=== PATIENT | male | born 1980 | race Hispanic/Latino ===

== ENCOUNTER 2017-09-02 14:50 | Emergency (ER) | payer SELFPAY ==
[2017-09-02 16:02] LABS: BASOPHILS % (AUTO) 0.2 % (0.0-5.0); EOSINOPHILS % (AUTO) 0.4 % (0.0-8.0); HEMATOCRIT 40.9 % (42-54); LYMPHOCYTES % (AUTO) 14.6 % (21.0-51.0); MEAN CORPUSCULAR HEMOGLOBIN 29.3 pg (27.0-33.0); MEAN CORPUSCULAR HGB CONC 35.7 g/dL (32.0-36.0); MEAN CORPUSCULAR VOLUME 82.1 fL (79-99); MONOCYTES % (AUTO) 4.7 % (3.0-13.0); NEUTROPHILS % (AUTO) 80.1 % (40.0-77.0); PLATELET COUNT (AUTO) 222 K/uL (130-400); RED BLOOD CELL COUNT(AUTO) 4.98 MIL/uL (4.50-6.20); RED CELL DISTRIBUTION WIDTH 12.7 % (11.0-15.5); WHITE BLOOD COUNT (AUTO) 8.8 K/uL (4.8-10.8)
[2017-09-02 16:22] LABS: ALBUMIN 4.1 g/dL (3.5-5.0); BILIRUBIN,TOTAL 0.3 mg/dL (0.2-1.0); TOTAL PROTEIN, SERUM 8.4 g/dL (6.0-8.3)
[2017-09-02] MEDS ORDERED: KETOROLAC TROMETHAMINE 30MG/ML ONE (16:41)
[2017-09-03] MEDS ORDERED: IOPAMIDOL-370 75 ML VIAL IV ONE (07:23)
== END 2017-09-02 18:19 | disposition home or self-care (01) ==
LOC: EDH 14:50
DX: K85.90 Acute pancreatitis without necrosis or infection, unspecified (principal); E11.9 Type 2 diabetes mellitus without complications; Z88.2 Allergy status to sulfonamides; Z87.891 Personal history of nicotine dependence
CPT/HCPCS: 36415; 76705; 85025; 80053; 82150; 83690; 96361; 96374; 99285; J1885; Q9967

== ENCOUNTER 2017-09-03 06:21 | Inpatient (IN) | payer SELFPAY ==
[~2017-09-03] VITALS: Ht 172.7 cm; Wt 86.6 kg
[2017-09-03] MEDS ORDERED: SODIUM CHLORIDE 0.9% 1000ML 1,000 ML IV ONE ×2 (06:38→12:11)
[2017-09-03] MEDS ORDERED: ONDANSETRON HCL 4 MG/2 ML VIAL ONE ×2 (06:38→08:16)
[2017-09-03] MEDS ORDERED: KETOROLAC TROMETHAMINE 30MG/ML ONE (06:38)
[2017-09-03 07:00] LABS: BASOPHILS % (AUTO) 0.1 % (0.0-5.0); CREATININE 1.1 mg/dL (0.5-1.5); EOSINOPHILS % (AUTO) 0.7 % (0.0-8.0); LYMPHOCYTES % (AUTO) 14.8 % (21.0-51.0); MEAN CORPUSCULAR HEMOGLOBIN 28.1 pg (27.0-33.0); MEAN CORPUSCULAR HGB CONC 34.3 g/dL (32.0-36.0); MEAN CORPUSCULAR VOLUME 81.8 fL (79-99); MONOCYTES % (AUTO) 5.7 % (3.0-13.0); NEUTROPHILS % (AUTO) 78.7 % (40.0-77.0); PLATELET COUNT (AUTO) 247 K/uL (130-400); POTASSIUM 3.5 mmol/L (3.5-5.1); RED BLOOD CELL COUNT(AUTO) 5.38 MIL/uL (4.50-6.20); WHITE BLOOD COUNT (AUTO) 16.1 K/uL (4.8-10.8)
[2017-09-03 07:06] LABS: ALBUMIN 4.1 g/dL (3.5-5.0); BILIRUBIN,TOTAL 1.4 mg/dL (0.2-1.0); TOTAL PROTEIN, SERUM 8.4 g/dL (6.0-8.3)
[2017-09-03 08:13] LABS: APPEARANCE,URINE Clear (CLEAR); BILIRUBIN,URINE Negative (NEGATIVE); COLOR,URINE Yellow (YELLOW); GLUCOSE, URINE (UA) TRACE mg/dL (NEGATIVE); KETONES,URINE 15 mg/dL (NEGATIVE); LEUKOCYTE ESTERASE ,URINE Negative (NEGATIVE); NITRATE,URINE Negative (NEGATIVE); OCCULT BLOOD,URINE Moderate (NEGATIVE); PH,URINE 5.5 (5.0-8.0); PROTEIN,URINE Negative (NEGATIVE)
[2017-09-03] MEDS ORDERED: MORPHINE SULFATE 8 MG/ML VIAL ONE (08:17)
[2017-09-03 08:20] LABS: AMPHET/METH SCREEN,URINE NEGATIVE (NEGATIVE); BARBITURATE SCREEN, URINE NEGATIVE (NEGATIVE); BENZODIAZEPINES SCREEN,URINE NEGATIVE (NEGATIVE); CANNABINOID SCREEN,URINE NEGATIVE (NEGATIVE); COCAINE SCREEN,URINE NEGATIVE (NEGATIVE); OPIATE SCREEN,URINE POSITIVE (NEGATIVE); PHENCYCLIDINE SCREEN,URINE NEGATIVE (NEGATIVE); RBC,URINE 0-1 /HPF (0-1)
[2017-09-03 08:21] LABS: BACTERIA,URINE Rare /HPF (None Seen); SQUAMOUS EPITHELIAL CELL,UR Rare /LPF (0-2); WBC,URINE 0-1 /HPF (0-1)
[2017-09-03] MEDS ORDERED: MORPHINE SULFATE 4 MG/1ML SYG ONE (10:10)
[2017-09-03 12:48] LABS: CHOLESTEROL 147 mg/dL (<200); HDL CHOLESTEROL 51 mg/dL (29-71); LDL DIRECT 92 mg/dL (0-99); TRIGLYCERIDES 110 mg/dL (30-200)
[2017-09-03 17:45] VITALS: BP 137/71
[2017-09-03 18:40] VITALS: BP 165/93
[2017-09-03 20:00] VITALS: BP 176/92
[2017-09-03] MEDS: SODIUM CHLORIDE 0.9% 1000ML 1,000 ML IV SCH (21:00)
[2017-09-03] MEDS ORDERED: MORPHINE SULFATE 2 MG/ML 1ML SYG ONE (21:01)
[2017-09-03] MEDS: MORPHINE SULFATE 2 MG/ML 1ML SYG IVP PRN (21:07)
[2017-09-03] MEDS: FAMOTIDINE/PF 20 MG/2 ML VIAL IV SCH (21:11)
[2017-09-03] MEDS ORDERED: ONDANSETRON HCL 4 MG/2 ML VIAL IVP PRN (21:15)
[2017-09-04] VITALS: BP 144/94
[2017-09-04] MEDS ORDERED: HYDRALAZINE HCL 20 MG/ML VIAL IV PRN (02:30)
[2017-09-04 04:00] VITALS: BP 138/85
[2017-09-04 05:37] LABS: HEMATOCRIT 40.4 % (42-54); MEAN CORPUSCULAR HEMOGLOBIN 28.7 pg (27.0-33.0); MEAN CORPUSCULAR HGB CONC 34.5 g/dL (32.0-36.0); MEAN CORPUSCULAR VOLUME 83.1 fL (79-99); PLATELET COUNT (AUTO) 198 K/uL (130-400); RED BLOOD CELL COUNT(AUTO) 4.85 MIL/uL (4.50-6.20); RED CELL DISTRIBUTION WIDTH 13.3 % (11.0-15.5); WHITE BLOOD COUNT (AUTO) 13.1 K/uL (4.8-10.8)
[2017-09-04 05:53] LABS: POTASSIUM 3.4 mmol/L (3.5-5.1)
[2017-09-04 07:44] LABS: LYMPHOCYTES % (MANUAL) 10 % (22-44); MAN.DIFF COMMENT-IMPRESSION MANUAL DIFFERENTIAL; MONOCYTES % (MANUAL) 6 % (2-9); PLATELET MORPHOLOGY COMMENT ADEQUATE; REACTIVE LYMPHOCYTES 2 % (0-0); SEGMENTED NEUTROPHILS % 82 % (40-70)
[2017-09-04 08:07] VITALS: BP 139/75
[2017-09-04] MEDS: FAMOTIDINE/PF 20 MG/2 ML VIAL IV SCH ×2 (09:14→20:13)
[2017-09-04] MEDS: SODIUM CHLORIDE 0.9% 1000ML 1,000 ML IV SCH ×3 (09:16→20:13)
[2017-09-04] MEDS: MORPHINE SULFATE 2 MG/ML 1ML SYG IVP PRN (09:17)
[2017-09-04 11:19] VITALS: BP 140/83
[2017-09-04 16:49] VITALS: BP 142/94
[2017-09-04 19:53] VITALS: BP 153/93
[2017-09-04] MEDS ORDERED: DEXTROSE 50%-WATER 50 ML DISP.SYRIN IV PRN (20:15)
[2017-09-04] MEDS ORDERED: GLUCAGON 1MG KIT 1 MG ML IM PRN (20:15)
[2017-09-04] MEDS ORDERED: INSULIN HUMULIN R 100 UNIT/ML 3ML ONE (20:20)
[2017-09-04] MEDS: INSULIN HUMULIN R 100 UNIT/ML 3ML SQ SCH (20:42)
[2017-09-05] VITALS: BP 149/94
[2017-09-05 04:00] VITALS: BP 152/92
[2017-09-05] MEDS: SODIUM CHLORIDE 0.9% 1000ML 1,000 ML IV SCH ×2 (05:22→13:47)
[2017-09-05] MEDS: INSULIN HUMULIN R 100 UNIT/ML 3ML SQ SCH ×2 (07:30→12:31)
[2017-09-05 07:45] VITALS: BP 149/96
[2017-09-05 08:20] VITALS: BP 168/99
[2017-09-05] MEDS: FAMOTIDINE/PF 20 MG/2 ML VIAL IV SCH (08:56)
[2017-09-05] MEDS ORDERED: ACETAMINOPHEN 325 MG TAB PO PRN (11:45)
[2017-09-05] MEDS ORDERED: POTASSIUM CHLORIDE 20 MEQ ERTAB PO SCH (12:00)
== END 2017-09-05 13:55 | disposition home or self-care (01) | DRG 439 ==
LOC: EDH 06:21 → EDHIP 06:22 → 4BH 18:09
PROVIDERS: ADMIT Family Medicine; ATTEND Family Medicine
DX: K85.90 Acute pancreatitis without necrosis or infection, unspecified (principal); R65.10 Systemic inflammatory response syndrome (SIRS) of non-infectious origin without acute organ dysfunction; E11.9 Type 2 diabetes mellitus without complications; Z88.2 Allergy status to sulfonamides
CPT/HCPCS: 36415; 74177; 80048; 80053; 80061; 80305; 81001; 82150; 82948; 83690; 85025; 93005; J1815; J1885; J2270; J2405; J3490; J7030

== ENCOUNTER 2018-10-23 07:35 | Emergency (ER) | payer OTHER | END 2018-10-23 08:46 | disposition home or self-care (01) | LOC: EDH 07:35 | DX: L60.0 Ingrowing nail (principal); M79.674 Pain in right toe(s); E11.9 Type 2 diabetes mellitus without complications; Z90.49 Acquired absence of other specified parts of digestive tract; Z88.2 Allergy status to sulfonamides; Z72.0 Tobacco use ==

== ENCOUNTER 2022-10-15 09:07 | Emergency (ER) | payer OTHER ==
[~2022-10-15] VITALS: Ht 172.7 cm; Wt 77.6 kg
[2022-10-15 09:39] LABS: BASOPHILS % (AUTO) 0.4 % (0.0-5.0); EOSINOPHILS % (AUTO) 1.9 % (0.0-8.0); HEMATOCRIT 45.4 % (42-54); LYMPHOCYTES % (AUTO) 23.4 % (21.0-51.0); MEAN CORPUSCULAR HEMOGLOBIN 29.3 pg (27.0-33.0); MEAN CORPUSCULAR HGB CONC 33.9 g/dL (32.0-36.0); MEAN CORPUSCULAR VOLUME 86.5 fL (79-99); MONOCYTES % (AUTO) 4.1 % (3.0-13.0); NEUTROPHILS % (AUTO) 69.9 % (40.0-77.0); PLATELET COUNT (AUTO) 174 K/uL (130-400); RED BLOOD CELL COUNT(AUTO) 5.25 MIL/uL (4.50-6.20); RED CELL DISTRIBUTION WIDTH 12.8 % (11.0-15.5); WHITE BLOOD COUNT (AUTO) 7.4 K/uL (4.8-10.8)
[2022-10-15 09:48] LABS: APPEARANCE,URINE CLEAR (CLEAR); BILIRUBIN,URINE NEGATIVE (NEGATIVE); COLOR,URINE YELLOW (YELLOW); GLUCOSE, URINE (UA) NEGATIVE (NEGATIVE); KETONES,URINE NEGATIVE (NEGATIVE); LEUKOCYTE ESTERASE ,URINE NEGATIVE Leu/uL (NEGATIVE); NITRATE,URINE NEGATIVE (NEGATIVE); OCCULT BLOOD,URINE NEGATIVE (NEGATIVE); PROTEIN,URINE 10 mg/dL (NEGATIVE); UROBILINOGEN,URINE 0.2 mg/dL (0.2-1.0)
[2022-10-15 09:49] LABS: POTASSIUM 4.2 mmol/L (3.5-5.1)
[2022-10-15 09:53] LABS: ALBUMIN 3.6 g/dL (3.5-5.0); TOTAL PROTEIN, SERUM 6.6 g/dL (6.0-8.3)
[2022-10-15] MEDS ORDERED: ONDANSETRON 4MG INJ IVP ONE (10:00)
[2022-10-15] MEDS ORDERED: FAMOTIDINE 20MG VIAL IV ONE (10:00)
[2022-10-15] MEDS ORDERED: MORPHINE 4 MG SYG IVP ONE (10:00)
[2022-10-15] MEDS ORDERED: 0.9%NACL 1000ML 1,000 ML IV ONE (10:00)
[2022-10-15 10:02] LABS: MUCUS,URINE FEW LPF (None Seen); RBC,URINE 0-1 /HPF (0-1); SQUAMOUS EPITHELIAL CELL,UR RARE /HPF (0-2); WBC,URINE 0-1 /HPF (0-1)
[2022-10-15] MEDS ORDERED: IOHEXOL 350 MG/ML 100ML INFUS..BTL IV ONE (10:48)
[2022-10-15] MEDS ORDERED: TRAM50TA4 PO (12:10)
[2022-10-15] MEDS ORDERED: ONDA4TAB10 PO (12:10)
[2022-10-15 12:14] VITALS: BP 102/68
== END 2022-10-15 12:30 | disposition home or self-care (01) ==
LOC: EDH 09:07
DX: K85.90 Acute pancreatitis without necrosis or infection, unspecified (principal); Z79.899 Other long term (current) drug therapy; Z88.2 Allergy status to sulfonamides
CPT/HCPCS: 99285; 74177; 96374; 96375; 96361; 84484; 80053; 83690 ×2; 85025; 81001; 36415; 93005; J3490; J7030; J2405; J2270; Q9967